=== PATIENT | male | born 1945 | race Caucasian/White ===

== ENCOUNTER 2020-05-18 13:09 | Observation (INO) ==
--- NOTE | 2020-05-18 13:36 | Emergency Department Note ---
Impression & Plan YASIR (acute kidney injury), Bladder outlet obstruction, Enlarged prostate ED Provider Note NAME: PABLO JACKSON AGE: 74 SEX: M : 1945 ARRIVES VIA: Walk-In INFORMANT: Patient ED PROVIDER(S): Lamine Lund DO CHIEF COMPLAINT: Lower abdominal pain HPI: Patient is a 74-year-old male who presents the ER for lower abdominal pain. This started over the past 2 to 3 weeks. Patient notes that he just told his physician in the past 24 hours and obtain a CAT scan. CAT scan showed dilated bladder as well as ureters and he was referred in for possible catheter. He was placed on Bactrim yesterday. He admits to dysuria urgency or frequency. This has been getting worse over the past 2 to 3 weeks. He feels better after he urinates. ROS: See above HPI for pertinent positives & negatives. A total of 10 systems reviewed and were otherwise negative. PAST MEDICAL HISTORY:See Below PAST SURGICAL HISTORY:See Below FAMILY HISTORY:See Below SOCIAL HISTORY:See Below HOME MEDICATIONS:See Below ALLERGIES:See Below VITALS:See Below PHYSICAL EXAMINATION: GENERAL: Sitting up in bed, alert, well appearing, well nourished, no distress, non-toxic EYE EXAM: normal conjunctiva. OROPHARYNX: mucous membranes are moist LUNGS: Clear to auscultation. Normal chest wall mechanics HEART: no murmurs, S1 normal and S2 normal ABDOMEN: abdomen soft, non-tender, normo-active bowel sounds, no masses, no rebound or guarding. UPPER EXTREMITIES: upper extremities are grossly normal. LOWER EXTREMITIES: No pitting edema. NEURO EXAM: Normal sensorium, cranial nerves II-XII grossly intact, normal speech, no gross weakness of arms, no gross weakness of legs. MEDICAL DECISION MAKING: Patient is a 74-year-old male who was having dysuria urgency frequency referred in by PCP following a CT which showed likely bladder outlet obstruction. Images were reviewed and showed bilateral hydroureter and distended bladder. IV was established blood work was obtained. Labs show no significant leukocytosis and mild anemia at 12. BMP with a creatinine of 2.8. Previous creatinine back in 2009 was normal at 1. No other since. Glucose was slightly elevated. Lipase was normal. UA was clean without infection. Covid was negative. Patient was given IV fluids. Discussed with the hospitalist admitted for further work-up of his YASIR likely secondary to bladder outlet obstruction. Triage Nursing notes reviewed. Prior medical records reviewed Vital Signs: reviewed and remarkable for HTN Differential diagnosis: Differential diagnoses includes but is not limited to gastritis, peptic ulcer disease, GERD, gallbladder disease, pancreatitis, small bowel obstruction, acute coronary syndrome, pericarditis, ischemic bowel, irritable bowel disease, irritable bowel syndrome, appendicitis, diverticulitis, malignancy, hernia, urinary tract infection, torsion, perforation, trauma, infectious. ER treatment provided: See below Diagnostics interpreted by me: ECG: none Cardiac Monitoring: An order was placed for continuous cardiac monitoring. The monitor shows a rate of 90 with sinus rhythm. Laboratory studies: As stated above and show below. Imaging studies: CT report as an outpatient was reviewed Consultation(s): Surekha with the hospitalist for further evaluation ED COURSE: Procedures: none Critical Care: None Past Med/Surg History Social History Smoking Status: Never smoker Feels Safe at Home: Yes Allergies Allergies Allergy/AdvReac Type Severity Reaction Status Date / Time No Known Allergies Allergy Verified 05/18/20 15:18 Home Meds Home Medications Medication Instructions Recorded Confirmed atorvastatin 10 mg PO HS 05/18/20 05/18/20 chlorthalidone 25 mg PO DAILY 05/18/20 05/18/20 chromium picolinate 0 mcg PO DAILY 05/18/20 05/18/20 dapagliflozin [Farxiga] 10 mg PO DAILY 05/18/20 05/18/20 metformin 1,000 mg PO BID 05/18/20 05/18/20 multivitamin [One A Day Vitamin] 1 tab PO QAM 05/18/20 05/18/20 repaglinide 4 mg PO TID 05/18/20 05/18/20 saw palmetto 0 mg PO DAILY 05/18/20 05/18/20 sulfamethoxazole-trimethoprim 1 tab PO BID 05/18/20 05/18/20 valsartan 320 mg PO DAILY 05/18/20 05/18/20 Results & Data (ED) Vital Signs Vital Signs - 24 hr 05/18/20 13:12 05/18/20 15:11 Temperature 36.3 C L Temperature Source Oral Pulse Rate 92 H Pulse Rate [Finger] 90 Pulse Rhythm [Finger] Regular Pulse Strength [Finger] Normal Respiratory Rate 18 18 Respiratory Effort / Characteristics Non-Labored Non-Labored Spontaneous Respiratory Depth Normal Normal Respiratory Pattern Regular Blood Pressure 167/72 H Blood Pressure [Right Arm] 167/72 H Blood Pressure Mean 103 Blood Pressure Mean [Right Arm] 103 Blood Pressure Position [Right Arm] Lying Pulse Oximetry 97 97 Oxygen Delivery Method Room Air Room Air Sepsis Recent Fever Within 48 Hours No Sepsis New/Unexplained Change in Mental Status N/A Sepsis Action Taken by Nursing No Action Required Laboratory Data Result diagrams: 05/18/20 14:10 05/18/20 14:10 Lab Results 05/18/20 05/18/20 05/18/20 Range/Units 14:10 14:10 14:10 WBC 10.30 (4.8-10.8) K/uL RBC 3.90 L (4.7-6.1) M/uL Hgb 12.2 L (14.0-18.0) g/dL Hct 36.8 L (42-52) % MCV 94.4 (80-100) fL MCH 31.3 (25-34) pg MCHC 33.2 (32-36) g/dL RDW Std Deviation 45.4 (36.4-46.3) fL RDW Coeff of Ruma 13.2 (11.5-14.5) % Plt Count 276 (130-400) K/uL MPV 11.8 H (7.4-10.4) fL Immature Gran % (Auto) 0.3 % Neut % (Auto) 72.2 % Lymph % (Auto) 18.5 % [place] % (Auto) 8.2 % Eos % (Auto) 0.7 % Baso % (Auto) 0.1 % Neut # (Auto) 7.44 H (1.4-6.5) K/uL Lymph # (Auto) 1.91 (1.2-3.4) K/uL [place] # (Auto) 0.84 H (0.11-0.59) K/uL Eos # (Auto) 0.07 (0-0.5) K/uL Baso # (Auto) 0.01 (0-0.2) K/uL Immature Gran # (Auto) 0.03 H (0.00-0.02) K/uL Sodium 137 (136-145) mmol/L Potassium 4.1 (3.5-5.1) mmol/L Chloride 98 (98-107) mmol/L Carbon Dioxide 30 (21-32) mmol/L Anion Gap 9.0 (3-11) BUN 52 H (7-18) mg/dl Creatinine 2.82 H (0.6-1.4) mg/dl Est Cr Clr Drug Dosing 23.5 ml/min Est GFR ( Amer) 24.6 Est GFR (Non-Af Amer) 21.2 BUN/Creatinine Ratio 18.3 (10-20) Glucose 279 H (70-99) mg/dl Calcium 8.9 (8.5-10.1) mg/dl Total Bilirubin 0.5 (0.2-1) mg/dl AST 13 L (15-37) U/L ALT 17 (12-78) U/L Alkaline Phosphatase 82 (45-117) U/L Total Protein 6.9 (6.4-8.2) gm/dl Albumin 3.2 L (3.4-5.0) gm/dl Globulin 3.7 (2.5-4.0) gm/dl Albumin/Globulin Ratio 0.9 (0.9-2) Lipase 71 L (73-393) U/L Urine Color Yellow Urine Appearance Clear (Clear) Urine pH 6.0 (4.5-7.5) Ur Specific [place] 1.018 (1.000-1.030) Urine Protein 3+ H (Negative) Urine Glucose (UA) 3+ H (Negative) Urine Ketones Negative (Negative) Urine Blood Trace H (Negative) Urine Nitrite Negative (Negative) Urine Bilirubin Negative (Negative) Urine Urobilinogen Negative (Negative) Ur Leukocyte Esterase Negative (Negative) Urine WBC (Auto) 5-10 H (0-5) /hpf Urine RBC (Auto) 0-4 (0-4) /hpf U Hyaline Cast (Auto) 1-5 (0-5) /lpf U Epithel Cells (Auto) >30 H (0-5) /lpf Urine Bacteria (Auto) Negative (Negative) Ur Renal Epithelial Cell Not Reportable SARS-CoV-2 Ag (Rapid) (Negative) 05/18/20 Range/Units Unknown WBC (4.8-10.8) K/uL RBC (4.7-6.1) M/uL Hgb (14.0-18.0) g/dL Hct (42-52) % MCV (80-100) fL MCH (25-34) pg MCHC (32-36) g/dL RDW Std Deviation (36.4-46.3) fL RDW Coeff of Ruma (11.5-14.5) % Plt Count (130-400) K/uL MPV (7.4-10.4) fL Immature Gran % (Auto) % Neut % (Auto) % Lymph % (Auto) % [place] % (Auto) % Eos % (Auto) % Baso % (Auto) % Neut # (Auto) (1.4-6.5) K/uL Lymph # (Auto) (1.2-3.4) K/uL [place] # (Auto) (0.11-0.59) K/uL Eos # (Auto) (0-0.5) K/uL Baso # (Auto) (0-0.2) K/uL Immature Gran # (Auto) (0.00-0.02) K/uL Sodium (136-145) mmol/L Potassium (3.5-5.1) mmol/L Chloride (98-107) mmol/L Carbon Dioxide (21-32) mmol/L Anion Gap (3-11) BUN (7-18) mg/dl Creatinine (0.6-1.4) mg/dl Est Cr Clr Drug Dosing ml/min Est GFR ( Amer) Est GFR (Non-Af Amer) BUN/Creatinine Ratio (10-20) Glucose (70-99) mg/dl Calcium (8.5-10.1) mg/dl Total Bilirubin (0.2-1) mg/dl AST (15-37) U/L ALT (12-78) U/L Alkaline Phosphatase (45-117) U/L Total Protein (6.4-8.2) gm/dl Albumin (3.4-5.0) gm/dl Globulin (2.5-4.0) gm/dl Albumin/Globulin Ratio (0.9-2) Lipase (73-393) U/L Urine Color Urine Appearance (Clear) Urine pH (4.5-7.5) Ur Specific [place] (1.000-1.030) Urine Protein (Negative) Urine Glucose (UA) (Negative) Urine Ketones (Negative) Urine Blood (Negative) Urine Nitrite (Negative) Urine Bilirubin (Negative) Urine Urobilinogen (Negative) Ur Leukocyte Esterase (Negative) Urine WBC (Auto) (0-5) /hpf Urine RBC (Auto) (0-4) /hpf U Hyaline Cast (Auto) (0-5) /lpf U Epithel Cells (Auto) (0-5) /lpf Urine Bacteria (Auto) (Negative) Ur Renal Epithelial Cell SARS-CoV-2 Ag (Rapid) Negative (Negative) Administered Medications Discontinued Medications Sodium Chloride (Nss 1000ml) 1,000 mls @ 999 mls/hr IV .[id number] ONE Stop: 05/18/20 15:58 Last Infusion: 05/18/20 16:36 Dose: 0 mls/hr Documented by: [id number] Admin: 05/18/20 15:13 Dose: 999 mls/hr Documented by: [id number] Discharge Plan Visit Data Chief Complaint: Abnormal Labs/Diagnostic Testing Stated Complaint: SENT BY DR FERNANDEZ,SENT AFTER CT ED Provider: Lamine Lund Discharge Problem: YASIR (acute kidney injury), Bladder outlet obstruction, Enlarged prostate Forms Stand Alone Forms: [facility] Prescriptions Prescriptions: No Action multivitamin [One A Day Vitamin] Tablet 1 tab PO QAM RF: 0 repaglinide 2 mg tablet 4 mg PO TID RF: 0 atorvastatin 10 mg tablet 10 mg PO HS RF: 0 saw palmetto 160 mg Capsule 0 mg PO DAILY RF: 0 chromium picolinate 200 mcg Tablet 0 mcg PO DAILY RF: 0 metformin 500 mg tablet extended release 24 hr 1,000 mg PO BID RF: 0 Farxiga 10 mg tablet 10 mg PO DAILY RF: 0 chlorthalidone 25 mg tablet 25 mg PO DAILY RF: 0 sulfamethoxazole-trimethoprim 800-160 mg tablet 1 tab PO BID RF: 0 valsartan 320 mg tablet 320 mg PO DAILY RF: 0
[2020-05-18 14:23] LABS: Basophils # (auto) 0.01 K/uL (0-0.2); Basophils % (auto) 0.1 %; Eosinophils # (auto) 0.07 K/uL (0-0.5); Eosinophils % (auto) 0.7 %; Hematocrit (blood only) 36.8 % (42-52); Hemoglobin 12.2 g/dL (14.0-18.0); Immature Granulocytes # (auto) 0.03 K/uL (0.00-0.02); Immature Granulocytes % (auto) 0.3 %; Lymphocytes # (auto) 1.91 K/uL (1.2-3.4); Lymphocytes % (auto) 18.5 %; Mean Corpuscular Hemoglobin 31.3 pg (25-34); Mean Corpuscular Hgb Conc 33.2 g/dL (32-36); Mean Corpuscular Volume 94.4 fL (80-100); Mean Platelet Volume 11.8 fL (7.4-10.4); Monocytes # (auto) 0.84 K/uL (0.11-0.59); Monocytes % (auto) 8.2 %; Neutrophils # (auto) 7.44 K/uL (1.4-6.5); Neutrophils % (auto) 72.2 %; Platelet Count 276 K/uL (130-400); RDW Coefficient of Variation 13.2 % (11.5-14.5); RDW Standard Deviation 45.4 fL (36.4-46.3)
[2020-05-18 14:38] LABS: Albumin Level 3.2 gm/dl (3.4-5.0); BUN Creatinine Ratio 18.3 (10-20); Calcium 8.9 mg/dl (8.5-10.1); Creatinine Clr Calc Pharmacy 23.5 ml/min; Est GFR (African American) 24.6; Est GFR (Non-African American) 21.2; Potassium 4.1 mmol/L (3.5-5.1)
[2020-05-18 14:41] LABS: Albumin Globulin Ratio 0.9 (0.9-2); Bilirubin,Total 0.5 mg/dl (0.2-1); Globulin 3.7 gm/dl (2.5-4.0); Total Protein 6.9 gm/dl (6.4-8.2)
[2020-05-18 14:44] LABS: Appearance Urine Clear (Clear); Bacteria Urine Automated Negative (Negative); Bilirubin Urine Negative (Negative); Blood Urine Trace (Negative); Color Urine Yellow; Epithelial Cell Urine Auto >30 /lpf (0-5); Glucose Urine UA 3+ (Negative); Ketones Urine Negative (Negative); Leukocyte Esterase Urine Negative (Negative); Nitrite Urine Negative (Negative); Protein Urine 3+ (Negative); RBC Urine Automated 0-4 /hpf (0-4); Specific Gravity Urine 1.018 (1.000-1.030); Urobilinogen Urine Negative (Negative)
[2020-05-18] MEDS ORDERED: SODIUM CHLORIDE 0.9% 1000ML 1,000 ML IV ONE (14:58)
--- NOTE | 2020-05-18 15:59 | History & Physical Report ---
Date of Service May 18, 2020 Assessment & Plan (1) Bladder outlet obstruction: - Admit to med surg - Urology consulted - discussed with Dr. Licona, will plan to maintain pedersen for now - CT abd/pelvis reviewed 1. Severely distended bladder with moderate bilateral hydronephrosis. This is likely secondary to chronic outlet obstruction from the enlarged prostate gland. 2. There is associated bladder wall thickening and adjacent fat stranding favors a superimposed cystitis. Recommend correlation with urinalysis. 3. Moderate well-formed stool within the colon. - Pedersen draining light pink urine, from pedersen placement, no hx of hematuria - UA does not appear infected, took 3 doses of bactrim as an outpt, will hold on further antibiotics at this time - No leukocytosis afebrile - Bladder scans as needed, noted hematuria, monitor for clots. - Pt has since had a bowel movement after barium study this morning. 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, unknown baseline but pt denies h/o CKD 2/2 LEIVA Also recently started chlorthalidone -dc diuretic -continue IVFs -HOLD ARB -follow serial BMP should improve with relief of obstruction (3) Enlarged prostate: - As per imaging, causing obstruction -continue Pedersen start Flomax f/u with Urology (4) HTN (hypertension): -BPs have been quite high at home recently likely 2/2 YASIR and urinary retention -dc chlorthalidone as above HOLD ARB -start amlodipine 5mg daily and titrate up as needed IV hydralazine prn (5) HLD (hyperlipidemia): - Cont atorvastatin 10 mg HS (6) DM type 2 (diabetes mellitus, type 2): - ISS with accuchecks achs -stopped Trulicity as was causing too much nausea transitioning to insulin as outpt with PCP hold metformin for CT scan and YASIR - Check A1C with am labs, in Feb was 7.9 by patient report (7) DVT prophylaxis: DVT ppx: - teds, hold Lovenox due to mild hematuria CODE: Full Dispo: From home, could dc to home tomorrow if YASIR improved and BP controlled History of Present Illness Primary Care Provider: Mychal Grace MD This is a 74-year-old male with PMHx of HTN, DM type II, HLD who presents after having a scheduled CT of the abdomen and pelvis for worsening ability to fully urinate x 1 month. He feels that this has truly been going on since March 2020. Patient has been following closely with his PCP, Dr. Grace, and was being scheduled as an outpatient to have follow-up with urology for increased frequency, inability to fully empty his bladder, and enlarged prostate. Patient came back to the ER today after CT abd/pelvis showed bladder outlet obstruction and instruction from his PCP. He reports having some left lower quadrant pain. A Pedersen catheter has been placed in the ER, draining light pink urine. Patient denies any history of hematuria in the past, this is likely from pedersen placement. He denies any fevers, chills or sweats. Patient takes some medication for high blood pressure, last taken this morning. He also has been working with his PCP to manage DM type II where he was recently taken off all his oral antihyperglycemics, and was being transitioned over to insulin. Previously he had also been using Trulicity but is no longer on this. He is agreeable to doing an insulin sliding scale during admission as well as titrating insulin. He also was just placed on chlorthalidone one week ago. Allergies Allergy/AdvReac Type Severity Reaction Status Date / Time No Known Allergies Allergy Verified 05/18/20 15:18 Home Medications Medication Instructions Recorded Confirmed Type atorvastatin 10 mg PO HS 05/18/20 05/18/20 History chlorthalidone 25 mg PO DAILY 05/18/20 05/18/20 History chromium picolinate 0 mcg PO DAILY 05/18/20 05/18/20 History dapagliflozin [Farxiga] 10 mg PO DAILY 05/18/20 05/18/20 History metformin 1,000 mg PO BID 05/18/20 05/18/20 History multivitamin [One A Day Vitamin] 1 tab PO QAM 05/18/20 05/18/20 History repaglinide 4 mg PO TID 05/18/20 05/18/20 History saw palmetto 0 mg PO DAILY 05/18/20 05/18/20 History sulfamethoxazole-trimethoprim 1 tab PO BID 05/18/20 05/18/20 History valsartan 320 mg PO DAILY 05/18/20 05/18/20 History Past Med/Surg History Medical History DM type 2 (diabetes mellitus, type 2) Enlarged prostate HLD (hyperlipidemia) HTN (hypertension) Family History Other Family history non-contributory Social History Smoking Status: Never smoker Feels Safe at Home: Yes Review of Systems Review of Systems: Constitutional: No fever, sweats or chills Eyes: No diplopia, no worsening or blurred vision ENT: normal hearing, no trouble swallowing Respiratory: No cough, sputum, dyspnea at rest or on exertion Cardiovascular: No chest pain, tightness or palpitations Abdomen: No pain, nausea, vomiting, diarrhea or constipation : Dysuria, increased frequency, denies hematuria Musculoskeletal: No joint pain, calf pain, swelling Neurologic: No weakness, numbness/tingling, or balance problems Psychiatric: No anxiety or depression Skin: No rash or itch Physical Exam Physical Exam: General: awake, alert, no apparent distress Head: Normocephalic, atraumatic ENT: PERRL, EOMI, no pharyngeal exudate, mucous membranes moist Chest: Clear to auscultation, on room air, no adventitious breath sounds Cardiac: Regular rate and rhythm, no murmur, no JVD, normal peripheral pulses, good capillary refill Abdominal: NABS x 4 quadrants, soft, nondistended, nontender to palpation, no rebound or guarding Gu: pedersen catheter draining light pink urine Extremities: Normal inspection, no peripheral edema or erythema, calfs nontender to palpation Psych: Normal mood and affect Neuro: AAO x 3, strength intact bilaterally and rated 5/5, no motor deficits, speech is clear, no peripheral sensory deficits Results & Data Results & Data ([facility]) Vital Signs (Past 12 Hours) Vital Signs Temp Pulse Resp BP Pulse Ox 05/18/20 13:12 36.3 C L 92 H 18 167/72 H 97 Laboratory Results 05/18/20 05/18/20 05/18/20 Range/Units Unknown 18:25 14:10 WBC (4.8-10.8) K/uL RBC (4.7-6.1) M/uL Hgb (14.0-18.0) g/dL Hct (42-52) % MCV (80-100) fL MCH (25-34) pg MCHC (32-36) g/dL RDW Std Deviation (36.4-46.3) fL RDW Coeff of Ruma (11.5-14.5) % Plt Count (130-400) K/uL MPV (7.4-10.4) fL Immature Gran % (Auto) % Neut % (Auto) % Lymph % (Auto) % [place] % (Auto) % Eos % (Auto) % Baso % (Auto) % Neut # (Auto) (1.4-6.5) K/uL Lymph # (Auto) (1.2-3.4) K/uL [place] # (Auto) (0.11-0.59) K/uL Eos # (Auto) (0-0.5) K/uL Baso # (Auto) (0-0.2) K/uL Immature Gran # (Auto) (0.00-0.02) K/uL Sodium (136-145) mmol/L Potassium (3.5-5.1) mmol/L Chloride (98-107) mmol/L Carbon Dioxide (21-32) mmol/L Anion Gap (3-11) BUN (7-18) mg/dl Creatinine (0.6-1.4) mg/dl Est Cr Clr Drug Dosing ml/min Est GFR ( Amer) Est GFR (Non-Af Amer) BUN/Creatinine Ratio (10-20) Glucose (70-99) mg/dl POC Glucose 139 H (70-99) mg/dl Calcium (8.5-10.1) mg/dl Total Bilirubin (0.2-1) mg/dl AST (15-37) U/L ALT (12-78) U/L Alkaline Phosphatase (45-117) U/L Total Protein (6.4-8.2) gm/dl Albumin (3.4-5.0) gm/dl Globulin (2.5-4.0) gm/dl Albumin/Globulin Ratio (0.9-2) Lipase (73-393) U/L Urine Color Yellow Urine Appearance Clear (Clear) Urine pH 6.0 (4.5-7.5) Ur Specific [place] 1.018 (1.000-1.030) Urine Protein 3+ H (Negative) Urine Glucose (UA) 3+ H (Negative) Urine Ketones Negative (Negative) Urine Blood Trace H (Negative) Urine Nitrite Negative (Negative) Urine Bilirubin Negative (Negative) Urine Urobilinogen Negative (Negative) Ur Leukocyte Esterase Negative (Negative) Urine WBC (Auto) 5-10 H (0-5) /hpf Urine RBC (Auto) 0-4 (0-4) /hpf U Hyaline Cast (Auto) 1-5 (0-5) /lpf U Epithel Cells (Auto) >30 H (0-5) /lpf Urine Bacteria (Auto) Negative (Negative) Ur Renal Epithelial Cell Not Reportable SARS-CoV-2 Ag (Rapid) Negative (Negative) 05/18/20 05/18/20 Range/Units 14:10 14:10 WBC 10.30 (4.8-10.8) K/uL RBC 3.90 L (4.7-6.1) M/uL Hgb 12.2 L (14.0-18.0) g/dL Hct 36.8 L (42-52) % MCV 94.4 (80-100) fL MCH 31.3 (25-34) pg MCHC 33.2 (32-36) g/dL RDW Std Deviation 45.4 (36.4-46.3) fL RDW Coeff of Ruma 13.2 (11.5-14.5) % Plt Count 276 (130-400) K/uL MPV 11.8 H (7.4-10.4) fL Immature Gran % (Auto) 0.3 % Neut % (Auto) 72.2 % Lymph % (Auto) 18.5 % [place] % (Auto) 8.2 % Eos % (Auto) 0.7 % Baso % (Auto) 0.1 % Neut # (Auto) 7.44 H (1.4-6.5) K/uL Lymph # (Auto) 1.91 (1.2-3.4) K/uL [place] # (Auto) 0.84 H (0.11-0.59) K/uL Eos # (Auto) 0.07 (0-0.5) K/uL Baso # (Auto) 0.01 (0-0.2) K/uL Immature Gran # (Auto) 0.03 H (0.00-0.02) K/uL Sodium 137 (136-145) mmol/L Potassium 4.1 (3.5-5.1) mmol/L Chloride 98 (98-107) mmol/L Carbon Dioxide 30 (21-32) mmol/L Anion Gap 9.0 (3-11) BUN 52 H (7-18) mg/dl Creatinine 2.82 H (0.6-1.4) mg/dl Est Cr Clr Drug Dosing 23.5 ml/min Est GFR ( Amer) 24.6 Est GFR (Non-Af Amer) 21.2 BUN/Creatinine Ratio 18.3 (10-20) Glucose 279 H (70-99) mg/dl POC Glucose (70-99) mg/dl Calcium 8.9 (8.5-10.1) mg/dl Total Bilirubin 0.5 (0.2-1) mg/dl AST 13 L (15-37) U/L ALT 17 (12-78) U/L Alkaline Phosphatase 82 (45-117) U/L Total Protein 6.9 (6.4-8.2) gm/dl Albumin 3.2 L (3.4-5.0) gm/dl Globulin 3.7 (2.5-4.0) gm/dl Albumin/Globulin Ratio 0.9 (0.9-2) Lipase 71 L (73-393) U/L Urine Color Urine Appearance (Clear) Urine pH (4.5-7.5) Ur Specific [place] (1.000-1.030) Urine Protein (Negative) Urine Glucose (UA) (Negative) Urine Ketones (Negative) Urine Blood (Negative) Urine Nitrite (Negative) Urine Bilirubin (Negative) Urine Urobilinogen (Negative) Ur Leukocyte Esterase (Negative) Urine WBC (Auto) (0-5) /hpf Urine RBC (Auto) (0-4) /hpf U Hyaline Cast (Auto) (0-5) /lpf U Epithel Cells (Auto) (0-5) /lpf Urine Bacteria (Auto) (Negative) Ur Renal Epithelial Cell SARS-CoV-2 Ag (Rapid) (Negative) Code Status & VTE Plan Code Status Full code VTE Prophylaxis Plan VTE Prophylaxis will be ordered: Yes Supervising Physician Co-Signing Physician Notes PA Supervision Note: I personally saw and examined the patient. I verified all fonseca points and agree with TARAS Curry with the following exceptions and/or additions: Pt here with worsening urinary retention, lower abd pain, elevated BPs after having outpt CT scan abd/pel ordered by PCP showing bladder distension and hydro Found to have YASIR. Pedersen placed History and ROS reviewed as above VAA NAD,AAOx3 RRR no mgr CTAB no wcr Abd +BS soft mild TTP left suprapubic region, noguarding or rebound Ext no edema Labs and rads reviewed 74 yo male here with YASIR, urinary retention acute on chronic. continue care as outlined above--> changes made to PA A/P above PG Care Time/CCT Total # of Minutes Spent Total Time Spent with Patient: Total time spent is greater than 50% in coordination of care (as documented) at patient's floor/unit and/or counseling patient: Coding Level of Care Code 94291 Initial Inpt Care Lvl 3 Diagnoses Bladder outlet obstruction N32.0 YASIR (acute kidney injury) N17.9 Enlarged prostate N40.0 HTN (hypertension) I10 HLD (hyperlipidemia) E78.5 DM type 2 (diabetes mellitus, type 2) E11.9 DVT prophylaxis Z29.9
[2020-05-18] MEDS ORDERED: GLUCAGON FOR INJ 1 MG VIAL SQ PRN (18:26)
[2020-05-18] MEDS ORDERED: GLUCOSE 40% GEL 15 GM TUBE PO PRN (18:26)
[2020-05-18] MEDS ORDERED: DEXTROSE 50% 50 ML SYRINGE IV PRN (18:26)
[2020-05-18] MEDS ORDERED: ONDANSETRON INJ 2 MG/ML 2 ML VIAL IV PRN (18:26)
[2020-05-18] MEDS ORDERED: CARBOHYDRATES FOR HYPOGLYCEMIA PO PRN (18:26)
[2020-05-18] MEDS ORDERED: GLUCOSE 10 TABS/TUBE PO PRN (18:26)
[2020-05-18] MEDS ORDERED: hydrALAZINE HCL 20 MG/ML VIAL IV PRN (18:59)
[2020-05-18] MEDS: ACETAMINOPHEN 325 MG TAB PO PRN (19:16)
[2020-05-18] MEDS: amLODIPine BESYLATE 5 MG TAB PO SCH (19:22)
[2020-05-18] MEDS: SODIUM CHLORIDE 0.9% 1000ML 1,000 ML IV SCH (19:24)
[2020-05-18] MEDS: INSULIN ASPART 100 UNITS/ML 3 ML PEN SC SCH ×2 (19:31→20:51)
[2020-05-18 19:32] LABS: BUN Creatinine Ratio 19.3 (10-20); Creatinine Clr Calc Pharmacy 27.1 ml/min; Est GFR (African American) 29.3; Est GFR (Non-African American) 25.3
[2020-05-18] MEDS: ATORVASTATIN 10 MG TAB PO SCH (20:37)
[2020-05-18] MEDS: TAMSULOSIN HCL 0.4 MG CAP PO SCH (20:38)
[2020-05-19 07:42] LABS: Hematocrit (blood only) 37.5 % (42-52); Hemoglobin 12.5 g/dL (14.0-18.0); Mean Corpuscular Hemoglobin 31.5 pg (25-34); Mean Corpuscular Hgb Conc 33.3 g/dL (32-36); Mean Corpuscular Volume 94.5 fL (80-100); Mean Platelet Volume 12.1 fL (7.4-10.4); Platelet Count 287 K/uL (130-400); RDW Coefficient of Variation 13.2 % (11.5-14.5); RDW Standard Deviation 45.6 fL (36.4-46.3); Red Blood Count 3.97 M/uL (4.7-6.1); White Blood Count 9.41 K/uL (4.8-10.8)
[2020-05-19] MEDS: SODIUM CHLORIDE 0.9% 1000ML 1,000 ML IV SCH ×2 (07:42→19:36)
--- NOTE | 2020-05-19 07:52 | Urology Consultation ---
Date of Consultation May 19, 2020 Assessment & Plan (1) Bladder outlet obstruction: (2) YASIR (acute kidney injury): (3) Benign localized prostatic hyperplasia with lower urinary tract symptoms (LUTS): acute urinary retention with YASIR - leave pedersen in place now - d/c home when medically stable - outpt cysto - - likely planning for TURP - discussed this with the patient who is very understanding History of Present Illness Attending Physician: Sara Noyola MD History of Present Illness 74y/o male w/ long hx of voiding dysfunction - recent progression of symptoms -nocturia x 10+ per night - was in for a routine visit with Dr. Grace and reported his troubles - was sent to the ER for a catheter - Cr elevated, hydro (b/l), grossly distended bladder - drastic subjective improvement in discomfort after catheter placed - good UoP - kept overnight because of hypertension - feels well this AM - reports he is ready for d/c home - we discussed options for fci management (likely TURP) - no prior prostate surgery Allergies Allergy/AdvReac Type Severity Reaction Status Date / Time No Known Allergies Allergy Verified 05/18/20 15:18 Home Medications Medication Instructions Recorded Confirmed Type atorvastatin 10 mg PO HS 05/18/20 05/18/20 History chlorthalidone 25 mg PO DAILY 05/18/20 05/18/20 History chromium picolinate 0 mcg PO DAILY 05/18/20 05/18/20 History dapagliflozin [Farxiga] 10 mg PO DAILY 05/18/20 05/18/20 History metformin 1,000 mg PO BID 05/18/20 05/18/20 History multivitamin [One A Day Vitamin] 1 tab PO QAM 05/18/20 05/18/20 History repaglinide 4 mg PO TID 05/18/20 05/18/20 History saw palmetto 0 mg PO DAILY 05/18/20 05/18/20 History sulfamethoxazole-trimethoprim 1 tab PO BID 05/18/20 05/18/20 History valsartan 320 mg PO DAILY 05/18/20 05/18/20 History Patient History Medical History DM type 2 (diabetes mellitus, type 2) Enlarged prostate HLD (hyperlipidemia) HTN (hypertension) Family History Other Family history non-contributory Social History Smoking Status: Never smoker Second Hand Exposure: No; Do You Dip or Chew Tobacco: No; Hx Alcohol Use: Yes Hx Substance Use: No Preferred Language: Nigerian Communication Ability: Effective Gold Miner Required: No Beliefs That Will Affect Care: None Current Living Situation: Spouse Other Information That Helps Us Care for You: No Feels Safe at Home: Yes Safety Concerns: Feels Safe At This Time Assistive Devices: Glasses Review of Systems Constitutional: no fever, no chills and no fatigue Eyes: no worsening vision Ear, Nose, Mouth, Throat: no facial pain and no pain with swallowing Respiratory: no cough and no dyspnea Cardiovascular: no chest pain and no palpitations Gastrointestinal: no abdominal pain, no nausea and no vomiting Genitourinary: + difficulty urinating, + urinary hesitancy, + decreased urination and + problem reported Musculoskeletal: no back pain Integumentary: no rash and no urticaria Neurologic: no gait abnormality and no unsteadiness Psychiatric: no behavioral changes and no depression Endocrine: no fatigue Physical Exam Physical Exam: pedersen draining clear urine Constitutional: well developed and well nourished Neck: neck nontender Respiratory: normal respiratory effort; no respiratory distress and does not use accessory muscles Cardiovascular: Rate/Rhythm: regular rate Vessels: radial pulses present Extremities: no edema Gastrointestinal (Abdomen): Inspection/Auscultation: abdomen normal to inspection Percussion/Palpation: abdomen soft; abdomen nontender and no guarding Musculoskeletal: Head/Neck/Chest: normocephalic and head atraumatic Extremities: extremities normal to inspection Skin: no rashes and no lesions Trauma: no evidence of skin trauma Neurologic: awake; not obtunded Speech / Cognition: normal speech Motor/Sensory: no tremor Psychiatric: Orientation: alert and oriented x 3 Genitourinary: no CVA tenderness Lymphatic: no lymphadenopathy Results & Data ([facility]) Vital Signs (Past 12 Hours) Vital Signs Temp Pulse Resp BP BP Pulse Ox 05/18/20 22:38 36.7 C 88 16 167/69 H 95 05/18/20 20:48 76 174/72 H PG Care Time/CCT Total # of Minutes Spent Total Time Spent with Patient: Total time spent is greater than 50% in coordination of care (as documented) at patient's floor/unit and/or counseling patient: Coding Level of Care Code 40625 Inpt Consult Level 3 Diagnoses Bladder outlet obstruction N32.0 YASIR (acute kidney injury) N17.9 Benign localized prostatic hyperplasia with lower urinary tract symptoms (LUTS) N40.1
[2020-05-19] MEDS: amLODIPine BESYLATE 5 MG TAB PO SCH (08:11)
[2020-05-19] MEDS: MULTIVITAMIN TAB PO SCH (08:11)
[2020-05-19 08:26] LABS: Albumin Level 3.1 gm/dl (3.4-5.0); BUN Creatinine Ratio 18.8 (10-20); Calcium 8.9 mg/dl (8.5-10.1); Creatinine Clr Calc Pharmacy 31.5 ml/min; Est GFR (African American) 35.1; Est GFR (Non-African American) 30.3; Potassium 4.2 mmol/L (3.5-5.1)
[2020-05-19 08:29] LABS: Albumin Globulin Ratio 0.9 (0.9-2); Bilirubin,Total 0.6 mg/dl (0.2-1); Globulin 3.3 gm/dl (2.5-4.0); Total Protein 6.4 gm/dl (6.4-8.2)
[2020-05-19] MEDS: INSULIN ASPART 100 UNITS/ML 3 ML PEN SC SCH ×4 (08:35→21:13)
[2020-05-19] MEDS ORDERED: VALSARTAN 80 MG TAB PO SCH (09:00)
[2020-05-19] MEDS ORDERED: CHLORTHALIDONE 25 MG TAB PO SCH (09:00)
[2020-05-19 09:11] LABS: Estimated Average Glucose 212 mg/dl
[2020-05-19] MEDS: CIPROFLOXACIN 500 MG TAB PO SCH ×2 (14:29→21:12)
--- NOTE | 2020-05-19 14:36 | Hospitalist Progress Note ---
Date of Service May 19, 2020 Assessment & Plan (1) Orthostasis: BPs dropping to 70s systolic today Likely secondary to starting amlodipine and FLomax -hold amlodipine bolused 1L NS and will continue NS at 125mL/hr -continue Flomax as he needs this for enlarged prostate -keep overnight add RICHARD hose-ordered but never placed on (2) Bladder outlet obstruction: -secondary to enlarged prostate PCP called me today and said pt had boggy tender prostate on exam in the office this week and was started on Bactrim for prostatitis UA here neg but coul dhave prostatitis -start Cipro x 2 weeks - Urology consulted - discussed with Dr. Licona, will plan to maintain pedersen for now - CT abd/pelvis reviewed 1. Severely distended bladder with moderate bilateral hydronephrosis. This is likely secondary to chronic outlet obstruction from the enlarged prostate gland. 2. There is associated bladder wall thickening and adjacent fat stranding favors a superimposed cystitis. Recommend correlation with urinalysis. 3. Moderate well-formed stool within the colon. 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 to 2.0 Also recently started chlorthalidone, and on Farxiga -dc diuretic, Farxiga -continue IVFs -HOLD ARB and metformin -follow serial BMP should improve with relief of obstruction -BMP in AM (4) Enlarged prostate: - As per imaging, causing obstruction -continue Pedersen started Flomax f/u with Urology will need TURP (5) HTN (hypertension): -BPs have been quite high at home recently likely 2/2 YASIR and urinary retention BP 206 here on evening of admission Now with orthostasis as above -dcd chlorthalidone and ARB as above -started amlodipine 5mg daily but now holding as above for orthostasis IV hydralazine prn SBP>180 (6) HLD (hyperlipidemia): - Cont atorvastatin 10 mg HS (7) DM type 2 (diabetes mellitus, type 2): - ISS with accuchecks achs -stopped Trulicity as was causing too much nausea dc Farxiga due to YASIR transitioning to insulin as outpt with PCP-Lantus 10 units qhs hold metformin for CT scan and YASIR - Hg A1Cnow 9.0%, in Feb was 7.9 by patient report (8) Acute prostatitis: as above, starting CIpro (9) DVT prophylaxis: DVT ppx: - teds CODE: Full Dispo: From home, could dc to home tomorrow if YASIR improved and orthostasis improved Admission and Anticipated Discharge Date Admission Date: May 18, 2020 Subjective Pt feeling better, no CP or SOB, no nausea, is eating well. However, continued to be orthostatic and lightheaded, with BPs dropping in to the 70s systolic despite 1L NS bolus. Is making plenty of urine. has some mild LLQ abd pain still, no BM yet Review of Systems Review of Systems: All systems reviewed & are unremarkable except as noted in HPI & below Physical Exam Constitutional: WD/WN, vitals as above Eyes: + anicteric sclerae Neck: trachea midline, no thyromegaly Respiratory: normal respiratory effort, lungs clear to auscultation Cardiovascular: RRR, no murmur, no edema Chest (Breasts): Chest: normal inspection of chest Gastrointestinal (Abdomen): normal bowel sounds, soft, nontender, no hepatosplenomegaly Musculoskeletal: Extremities: extremities normal to inspection; no cyanosis and no clubbing Skin: no rashes, warm and dry Neurologic: moves all extremities and awake; no focal motor deficits Psychiatric: A+Ox3, euthymic affect Lymphatic: no lymphedema Results & Data Results & Data ([facility]) Vital Signs (Past 12 Hours) Vital Signs Temp Pulse Resp BP Pulse Ox 05/19/20 10:34 36.7 C 90 18 131/68 96 05/19/20 08:07 36.7 C 90 18 131/68 96 Laboratory Results 05/19/20 05/19/20 05/19/20 Range/Units 12:11 08:26 07:09 WBC (4.8-10.8) K/uL RBC (4.7-6.1) M/uL Hgb (14.0-18.0) g/dL Hct (42-52) % MCV (80-100) fL MCH (25-34) pg MCHC (32-36) g/dL RDW Std Deviation (36.4-46.3) fL RDW Coeff of Ruma (11.5-14.5) % Plt Count (130-400) K/uL MPV (7.4-10.4) fL Sodium (136-145) mmol/L Potassium (3.5-5.1) mmol/L Chloride (98-107) mmol/L Carbon Dioxide (21-32) mmol/L Anion Gap (3-11) BUN (7-18) mg/dl Creatinine (0.6-1.4) mg/dl Est Cr Clr Drug Dosing ml/min Est GFR ( Amer) Est GFR (Non-Af Amer) BUN/Creatinine Ratio (10-20) Glucose (70-99) mg/dl POC Glucose 207 H 171 H (70-99) mg/dl Estimat Average Glucose 212 mg/dl Hemoglobin A1c 9.0 H (4.5-5.6) % Calcium (8.5-10.1) mg/dl Total Bilirubin (0.2-1) mg/dl AST (15-37) U/L ALT (12-78) U/L Alkaline Phosphatase (45-117) U/L Total Protein (6.4-8.2) gm/dl Albumin (3.4-5.0) gm/dl Globulin (2.5-4.0) gm/dl Albumin/Globulin Ratio (0.9-2) Lipase (73-393) U/L Urine Color Urine Appearance (Clear) Urine pH (4.5-7.5) Ur Specific [place] (1.000-1.030) Urine Protein (Negative) Urine Glucose (UA) (Negative) Urine Ketones (Negative) Urine Blood (Negative) Urine Nitrite (Negative) Urine Bilirubin (Negative) Urine Urobilinogen (Negative) Ur Leukocyte Esterase (Negative) Urine WBC (Auto) (0-5) /hpf Urine RBC (Auto) (0-4) /hpf U Hyaline Cast (Auto) (0-5) /lpf U Epithel Cells (Auto) (0-5) /lpf Urine Bacteria (Auto) (Negative) Ur Renal Epithelial Cell SARS-CoV-2 Ag (Rapid) (Negative) 05/19/20 05/19/20 05/18/20 Range/Units 07:09 07:09 Unknown WBC 9.41 (4.8-10.8) K/uL RBC 3.97 L (4.7-6.1) M/uL Hgb 12.5 L (14.0-18.0) g/dL Hct 37.5 L (42-52) % MCV 94.5 (80-100) fL MCH 31.5 (25-34) pg MCHC 33.3 (32-36) g/dL RDW Std Deviation 45.6 (36.4-46.3) fL RDW Coeff of Ruma 13.2 (11.5-14.5) % Plt Count 287 (130-400) K/uL MPV 12.1 H (7.4-10.4) fL Sodium 141 (136-145) mmol/L Potassium 4.2 (3.5-5.1) mmol/L Chloride 105 (98-107) mmol/L Carbon Dioxide 25 (21-32) mmol/L Anion Gap 11.0 (3-11) BUN 40 H (7-18) mg/dl Creatinine 2.10 H D (0.6-1.4) mg/dl Est Cr Clr Drug Dosing 31.5 ml/min Est GFR ( Amer) 35.1 Est GFR (Non-Af Amer) 30.3 BUN/Creatinine Ratio 18.8 (10-20) Glucose 175 H (70-99) mg/dl POC Glucose (70-99) mg/dl Estimat Average Glucose mg/dl Hemoglobin A1c (4.5-5.6) % Calcium 8.9 (8.5-10.1) mg/dl Total Bilirubin 0.6 (0.2-1) mg/dl AST 12 L (15-37) U/L ALT 15 (12-78) U/L Alkaline Phosphatase 74 (45-117) U/L Total Protein 6.4 (6.4-8.2) gm/dl Albumin 3.1 L (3.4-5.0) gm/dl Globulin 3.3 (2.5-4.0) gm/dl Albumin/Globulin Ratio 0.9 (0.9-2) Lipase (73-393) U/L Urine Color Urine Appearance (Clear) Urine pH (4.5-7.5) Ur Specific [place] (1.000-1.030) Urine Protein (Negative) Urine Glucose (UA) (Negative) Urine Ketones (Negative) Urine Blood (Negative) Urine Nitrite (Negative) Urine Bilirubin (Negative) Urine Urobilinogen (Negative) Ur Leukocyte Esterase (Negative) Urine WBC (Auto) (0-5) /hpf Urine RBC (Auto) (0-4) /hpf U Hyaline Cast (Auto) (0-5) /lpf U Epithel Cells (Auto) (0-5) /lpf Urine Bacteria (Auto) (Negative) Ur Renal Epithelial Cell SARS-CoV-2 Ag (Rapid) Negative (Negative) 05/18/20 05/18/20 05/18/20 Range/Units 20:49 18:57 18:25 WBC (4.8-10.8) K/uL RBC (4.7-6.1) M/uL Hgb (14.0-18.0) g/dL Hct (42-52) % MCV (80-100) fL MCH (25-34) pg MCHC (32-36) g/dL RDW Std Deviation (36.4-46.3) fL RDW Coeff of Ruma (11.5-14.5) % Plt Count (130-400) K/uL MPV (7.4-10.4) fL Sodium 141 (136-145) mmol/L Potassium 4.0 (3.5-5.1) mmol/L Chloride 104 (98-107) mmol/L Carbon Dioxide 31 (21-32) mmol/L Anion Gap 6.0 (3-11) BUN 47 H (7-18) mg/dl Creatinine 2.44 H D (0.6-1.4) mg/dl Est Cr Clr Drug Dosing 27.1 ml/min Est GFR ( Amer) 29.3 Est GFR (Non-Af Amer) 25.3 BUN/Creatinine Ratio 19.3 (10-20) Glucose 143 H (70-99) mg/dl POC Glucose 203 H 139 H (70-99) mg/dl Estimat Average Glucose mg/dl Hemoglobin A1c (4.5-5.6) % Calcium 9.0 (8.5-10.1) mg/dl Total Bilirubin (0.2-1) mg/dl AST (15-37) U/L ALT (12-78) U/L Alkaline Phosphatase (45-117) U/L Total Protein (6.4-8.2) gm/dl Albumin (3.4-5.0) gm/dl Globulin (2.5-4.0) gm/dl Albumin/Globulin Ratio (0.9-2) Lipase (73-393) U/L Urine Color Urine Appearance (Clear) Urine pH (4.5-7.5) Ur Specific [place] (1.000-1.030) Urine Protein (Negative) Urine Glucose (UA) (Negative) Urine Ketones (Negative) Urine Blood (Negative) Urine Nitrite (Negative) Urine Bilirubin (Negative) Urine Urobilinogen (Negative) Ur Leukocyte Esterase (Negative) Urine WBC (Auto) (0-5) /hpf Urine RBC (Auto) (0-4) /hpf U Hyaline Cast (Auto) (0-5) /lpf U Epithel Cells (Auto) (0-5) /lpf Urine Bacteria (Auto) (Negative) Ur Renal Epithelial Cell SARS-CoV-2 Ag (Rapid) (Negative) 05/18/20 05/18/20 Range/Units 14:10 14:10 WBC (4.8-10.8) K/uL RBC (4.7-6.1) M/uL Hgb (14.0-18.0) g/dL Hct (42-52) % MCV (80-100) fL MCH (25-34) pg MCHC (32-36) g/dL RDW Std Deviation (36.4-46.3) fL RDW Coeff of Ruma (11.5-14.5) % Plt Count (130-400) K/uL MPV (7.4-10.4) fL Sodium 137 (136-145) mmol/L Potassium 4.1 (3.5-5.1) mmol/L Chloride 98 (98-107) mmol/L Carbon Dioxide 30 (21-32) mmol/L Anion Gap 9.0 (3-11) BUN 52 H (7-18) mg/dl Creatinine 2.82 H (0.6-1.4) mg/dl Est Cr Clr Drug Dosing 23.5 ml/min Est GFR ( Amer) 24.6 Est GFR (Non-Af Amer) 21.2 BUN/Creatinine Ratio 18.3 (10-20) Glucose 279 H (70-99) mg/dl POC Glucose (70-99) mg/dl Estimat Average Glucose mg/dl Hemoglobin A1c (4.5-5.6) % Calcium 8.9 (8.5-10.1) mg/dl Total Bilirubin 0.5 (0.2-1) mg/dl AST 13 L (15-37) U/L ALT 17 (12-78) U/L Alkaline Phosphatase 82 (45-117) U/L Total Protein 6.9 (6.4-8.2) gm/dl Albumin 3.2 L (3.4-5.0) gm/dl Globulin 3.7 (2.5-4.0) gm/dl Albumin/Globulin Ratio 0.9 (0.9-2) Lipase 71 L (73-393) U/L Urine Color Yellow Urine Appearance Clear (Clear) Urine pH 6.0 (4.5-7.5) Ur Specific [place] 1.018 (1.000-1.030) Urine Protein 3+ H (Negative) Urine Glucose (UA) 3+ H (Negative) Urine Ketones Negative (Negative) Urine Blood Trace H (Negative) Urine Nitrite Negative (Negative) Urine Bilirubin Negative (Negative) Urine Urobilinogen Negative (Negative) Ur Leukocyte Esterase Negative (Negative) Urine WBC (Auto) 5-10 H (0-5) /hpf Urine RBC (Auto) 0-4 (0-4) /hpf U Hyaline Cast (Auto) 1-5 (0-5) /lpf U Epithel Cells (Auto) >30 H (0-5) /lpf Urine Bacteria (Auto) Negative (Negative) Ur Renal Epithelial Cell Not Reportable SARS-CoV-2 Ag (Rapid) (Negative) PG Care Time/CCT Total # of Minutes Spent Total Time Spent with Patient: Total time spent is greater than 50% in coordination of care (as documented) at patient's floor/unit and/or counseling patient: Coding Level of Care Code 34773 Subseq Hosp Care Lvl 3 Diagnoses Orthostasis I95.1 Bladder outlet obstruction N32.0 YASIR (acute kidney injury) N17.9 Enlarged prostate N40.0 HTN (hypertension) I10 HLD (hyperlipidemia) E78.5 DM type 2 (diabetes mellitus, type 2) E11.9 Acute prostatitis N41.0 DVT prophylaxis Z29.9
[2020-05-19] MEDS: ACETAMINOPHEN 325 MG TAB PO PRN (19:38)
[2020-05-19] MEDS: ATORVASTATIN 10 MG TAB PO SCH (21:12)
[2020-05-19] MEDS: TAMSULOSIN HCL 0.4 MG CAP PO SCH (21:12)
[2020-05-20] MEDS: SODIUM CHLORIDE 0.9% 1000ML 1,000 ML IV SCH ×2 (03:36→11:06)
[2020-05-20 07:04] LABS: BUN Creatinine Ratio 16.3 (10-20); Calcium 8.1 mg/dl (8.5-10.1); Creatinine Clr Calc Pharmacy 37.4 ml/min; Est GFR (African American) 43.2; Est GFR (Non-African American) 37.3; Potassium 3.8 mmol/L (3.5-5.1)
[2020-05-20] MEDS: MULTIVITAMIN TAB PO SCH (08:42)
[2020-05-20] MEDS: CIPROFLOXACIN 500 MG TAB PO SCH (08:42)
[2020-05-20] MEDS: INSULIN ASPART 100 UNITS/ML 3 ML PEN SC SCH ×2 (08:44→13:05)
--- NOTE | 2020-05-20 13:26 | Discharge Summary ---
Date of Service May 20, 2020 Admission HPI Per Admitting Provider This is a 74-year-old male with PMHx of HTN, DM type II, HLD who presents after having a scheduled CT of the abdomen and pelvis for worsening ability to fully urinate x 1 month. He feels that this has truly been going on since March 2020. Patient has been following closely with his PCP, Dr. Grace, and was being scheduled as an outpatient to have follow-up with urology for increased frequency, inability to fully empty his bladder, and enlarged prostate. Patient came back to the ER today after CT abd/pelvis showed bladder outlet obstruction and instruction from his PCP. He reports having some left lower quadrant pain. A Pedersen catheter has been placed in the ER, draining light pink urine. Patient denies any history of hematuria in the past, this is likely from pedersen placement. He denies any fevers, chills or sweats. Patient takes some medication for high blood pressure, last taken this morning. He also has been working with his PCP to manage DM type II where he was recently taken off all his oral antihyperglycemics, and was being transitioned over to insulin. Previously he had also been using Trulicity but is no longer on this. He is agreeable to doing an insulin sliding scale during admission as well as titrating insulin. He also was just placed on chlorthalidone one week ago. Principal Diagnosis Acute kidney injury, Urinary retention Discharge Exam Constitutional WD/WN, vitals as above Eyes + anicteric sclerae ENMT Ears: no hearing impairment Neck trachea midline, no thyromegaly Respiratory normal respiratory effort, lungs clear to auscultation Cardiovascular RRR, no murmur, no edema Chest (Breasts) Chest: normal inspection of chest Gastrointestinal (Abdomen) normal bowel sounds, soft, nontender, no hepatosplenomegaly Musculoskeletal Extremities: extremities normal to inspection; no cyanosis and no clubbing Skin no rashes, warm and dry Neurologic moves all extremities and awake; no focal motor deficits Psychiatric A+Ox3, euthymic affect Genitourinary Pedersen in place draining copious clear yellow urine Lymphatic no lymphedema Discharge Data Allergies Allergy/AdvReac Type Severity Reaction Status Date / Time No Known Allergies Allergy Verified 05/18/20 15:18 Consultations 05/18/20 14:58 ED Decision to Admit Stat 12/15/20 18:26 Consult Case Management - Discharge Planning Routine Consult Urology Routine Diabetes Follow up Diabetes Follow-up Needed for HgbA1c >9% Hospital Course (1) Orthostasis: BPs dropping to 70s systolic with standing after starting FLomax Likely secondary to starting amlodipine and FLomax -held amlodipine and continued FLomax, gave IVFs and BPs STILL dropped 60 points systolicwith standing but only to 90s systolic. Was still symptomatic. STOPPED Flomax and would not continue in the future unfortunately -continue RICHARD hose at home, gave instructions to squeeze legs prior to standing up and lie down if lightheaded (2) Bladder outlet obstruction: -secondary to enlarged prostate PCP called me and said pt had boggy tender prostate on exam in the office this week and was started on Bactrim for prostatitis UA here neg but could still have prostatitis -start Cipro x 10 day course - Urology consulted - discussed with Dr. Licona, will plan to maintain pedersen for now-will go home with Pedersen in place - CT abd/pelvis reviewed 1. Severely distended bladder with moderate bilateral hydronephrosis. This is likely secondary to chronic outlet obstruction from the enlarged prostate gland. 2. There is associated bladder wall thickening and adjacent fat stranding favors a superimposed cystitis. Recommend correlation with urinalysis. 3. Moderate well-formed stool within the colon. -f/u with Urol as outpt, will likely need a TURP in future (3) YASIR (acute kidney injury): water sander 2.8 on admission, unknown baseline but pt denies h/o CKD 2/2 LEIVA Improving today water sander down to 1.77 Also recently started chlorthalidone, and on Farxiga -dc diuretic, Farxiga -received IVFs -HOLD ARB and metformin on discharge -follow BMP as outpt should continue to improve with relief of obstruction and holding meds as above (4) Enlarged prostate: - As per imaging, causing obstruction -continue Pedersen started Flomax but CANNOT tolerate due to significant orthostasis f/u with Urology will need TURP (5) HTN (hypertension): -BPs have been quite high at home recently likely 2/2 YASIR and urinary retention BP 206 here on evening of admission Now with orthostasis as above and resting BP much improved -dcd chlorthalidone and ARB as above -started amlodipine 5mg daily but now holding as above for orthostasis -advised to have amlodipine at home and check BPs, start amlodipine 5mg daily if BP>160 systolic f/u with PCP (6) HLD (hyperlipidemia): - Cont atorvastatin 10 mg HS (7) DM type 2 (diabetes mellitus, type 2): - ISS with accuchecks achs -stopped Trulicity as was causing too much nausea dc Farxiga due to YASIR transitioning to insulin as outpt with PCP-Basaglar 10 units qhs hold metformin for YASIR -continue home Prandin on discharge - Hg A1C now 9.0%, in Feb was 7.9 by patient report (8) Acute prostatitis: as above, starting CIpro (9) DVT prophylaxis: DVT ppx: - teds CODE: Full Dispo: dc to home Total Time Total Time Spent Total Time Spent (In Minutes): 35 min Total Time Includes: Examination of the Patient, Discharge Planning and Medication Reconciliation Discharge Plan Discharge Items Patient Disposition: Home - Self-Care Reason For Visit: BLADDER OUTLET OBSTRUCTION, YASIR Discharge Diagnosis: Acute kidney injury, bladder outlet obstruction with urinary retention, Acute prostatitis Condition on Discharge: Good Activity: Resume your previous activity Non-emergency contact: Primary Care Provider Call non-emergency contact if: you have any medication questions and your symptoms worsen Follow-up/Referrals: Carlito Licona MD [Physician] - 05/26/20 11:45 am (Follow-up with urology within 1 week-they should call you to schedule) Mychal Grace MD [Primary Care Provider] - 05/25/20 10:30 am (Follow-up within [address] NORMA NAVA WILL SEE YOU IN THE OFFICE FOR YOUR F/U VISIT) Diet: Carb Consistent or DM2 and Heart Healthy Ambulatory Orders: Basic Metabolic Panel (Routine) Timeframe: 2 Days Location: Determined by Patient Ordered By: Sara Godoy Attending Provider Instructions: You were admitted for acute kidney injury secondary to urinary retention from enlarged prostate. A Pedersen catheter was placed and should remain in place until you are seen in follow-up with urology. You were started on Flomax to help shrink your prostate and allow the urine to be released, however this made your blood pressure drop dangerously low every time you stood up and made you dizzy. Therefore, the Flomax was STOPPED. You may end up needing a surgery on your prostate to allow your urine to flow more freely and then the catheter can be removed. You should also take 9 more days of the antibiotic called Cipro to treat a prostate infection. DO NOT TAKE the Bactrim previously prescribed by Dr. Grace. Your blood pressure was quite elevated initially, but then normalized.Please STOP your chlorthalidone and valsartan because of your acute kidney injury. This will be replaced with amlodipine 5 mg once daily NEEDED for blood pressure> 160 for the top number. Please check your blood pressure twice a day after you return home. Please squeeze her legs together to get the blood flowing back to the heart before you stand up from a seated position. If you feel lightheaded when you stand up, lie back down right away. You should have your blood work repeated to check your kidney function on Sunday. The results get sent to Dr. Grace and Dr. Licona of urology. You should follow-up with urology as scheduled for you. As for your diabetes, your Farxiga and Metformin should be discontinued because of your decreased kidney function. Please start on the insulin as Dr. Grace ordered for you soon as possible and check your blood sugars 4 times a day before each meal and at bedtime. You will continue on your Prandin as before. Follow-up with Dr. Grace within 1 week after discharge as scheduled for you. Pending Studies at Discharge: No Stand-Alone Forms: My [facility] Medications and DC Order Prescriptions: New tamsulosin 0.4 mg Capsule 0.4 mg PO HS Qty: 30 RF: 0 ciprofloxacin HCl 500 mg Tablet 500 mg PO BID 9 Days Qty: 18 RF: 0 Basaglar KwikPen U-100 Insulin 100 unit/mL (3 mL) insulin pen 10 unit subcut PM Qty: 3 RF: 0 amlodipine [Norvasc] 5 mg tablet 5 mg PO DAILY PRN (Reason: blood pressure >160 systolic) Qty: 30 RF: 0 Continued multivitamin Tablet 1 tab PO QAM RF: 0 repaglinide 2 mg tablet 4 mg PO TID RF: 0 atorvastatin 10 mg tablet 10 mg PO HS RF: 0 saw palmetto 160 mg Capsule 0 mg PO DAILY RF: 0 chromium picolinate 200 mcg Tablet 0 mcg PO DAILY RF: 0 Discontinued metformin 500 mg tablet extended release 24 hr 1,000 mg PO BID RF: 0 Farxiga 10 mg tablet 10 mg PO DAILY RF: 0 chlorthalidone 25 mg tablet 25 mg PO DAILY RF: 0 sulfamethoxazole-trimethoprim 800-160 mg tablet 1 tab PO BID RF: 0 valsartan 320 mg tablet 320 mg PO DAILY RF: 0 Discharge Orders: Discharge Order (Routine); Ordered 05/20/20 Ordered By: Sara Frost/Other Patient Handouts: Managing Type 2 Diabetes Admission Data Admit Date/Time: 05/18/20 15:50 Attending Provider: Sara Noyola Admit Provider: Sara Noyola Primary Care Provider: Mychal Grace Other Providers: Sara Noyola ; Carlito Licona Other Interventions: Discharge Summary Assessment (RN) Last Done: 05/19/20 10:34 Coding Level of Care Code D/C Day Management >30 mins Diagnoses Orthostasis I95.1 Bladder outlet obstruction N32.0 YASIR (acute kidney injury) N17.9 Enlarged prostate N40.0 HTN (hypertension) I10 HLD (hyperlipidemia) E78.5 DM type 2 (diabetes mellitus, type 2) E11.9 Acute prostatitis N41.0 DVT prophylaxis Z29.9
== END 2020-05-20 15:11 | disposition home or self-care (01) | DRG 699 ==
LOC: ED 13:09 → INTOOBSV 15:50 → 3W 15:50